=== PATIENT | female | born 1970 | race Caucasian/White ===

== ENCOUNTER 2017-04-02 02:30 | Inpatient (IN) | payer MEDICAID ==
[~2017-04-02] VITALS: Ht 177.8 cm; Wt 112.7 kg
--- NOTE | ~2017-04-02 | HP ---
PATIENT'S NAME: KRAIG ECHOLS [facility] AGE: 46 Y [address] ROOM: [place] [address] LOCATION: GICU ADMIT DATE: 04/02/2017 History & Physical DISCHARGE DATE: 04/07/2017 FAMILY PHYSICIAN: Physician, Unknown ATTENDING PHYSICIAN: Collin Murcia DATE OF SERVICE: CHIEF COMPLAINT: Chest and back pain and headache. HISTORY: Mrs. Echols is a 46-year-old, white female, who presented to the [facility] Room, complaining of the above. She states she has been on the side of the road for 2 hours trying to fix her car while traveling from [place] back home to [place], [place]. She got hot and overwork and began experiencing some right shoulder pain, right neck pain with extension to the back and possibly into the chest. She was taken to the CAT scan and found to have an aortic dissection, and I was called for acceptance and transfer. What we found out during the transfer is that she has had previous sternotomy for repair of a type A dissection. My review of the CT scan indicates to me that this is likely a chronic dissection and no acute episode has been noted. She presented here, mainly complaining of a headache. We [facility] department. CAT scan of the head was performed which showed questionable cerebellar mass. She was on an esmolol drip. This was adjusted and she was transferred to the intensive care unit. Her medical records were obtained from [place], [place]. PAST MEDICAL HISTORY: Significant for the aortic dissection, poorly controlled hypertension, and anxiety. SOCIAL HISTORY: She is a chronic smoker. Continues to smoke at least half a pack a day. FAMILY HISTORY: Not significant for coronary artery disease. MEDICATIONS: She is currently on an esmolol drip. At home, she is on atorvastatin 20 mg p.o. q.h.s., Lopressor 100 mg p.o. b.i.d., Norvasc 10 mg daily. REVIEW OF SYSTEMS: As per the history of chief complaint. PATIENT'S NAME: KRAIG ECHOLS [facility] AGE: 46 Y [address] ROOM: [place] [address] LOCATION: GICU ADMIT DATE: 04/02/2017 History & Physical DISCHARGE DATE: 04/07/2017 FAMILY PHYSICIAN: Physician, Unknown ATTENDING PHYSICIAN: Collin Murcia PHYSICAL EXAMINATION: GENERAL: An alert and oriented white female, with a complaint of a headache, but otherwise in no acute distress. HEENT: Shows head to be normocephalic and atraumatic. Extraocular muscles are intact. Pupils are equal, round, react to light and accommodation. HEART: Regular rate and rhythm without murmur or gallop. She has a sternotomy incision which is well healed and her sternum is well healed. LUNGS: Clear to auscultation bilaterally. ABDOMEN: Soft, obese, nontender. Bowel sounds are positive. EXTREMITIES: Showed no evidence of cyanosis, clubbing, or edema. She has equal pulses bilaterally into the legs bilaterally and equal as well. DIAGNOSTIC DATA: CAT scan does show chronic dissection of the arch and not involving the head vessels and goes into the descending thoracic aorta into the abdominal aorta. Review of her records from [place] indicates this is unchanged from previous films. IMPRESSION: 1. Hypertensive crisis with systolics greater than 200 and diastolics greater than 100 on arrival to [facility]. 2. History of aortic dissection with chronicity of distal arch, descending, and abdominal aorta. 3. Headache. Questionable posterior cerebral mass on CAT scan. PLAN: She will be admitted to the intensive care unit for aggressive blood pressure management. We will trend cardiac enzymes. We will obtain an MRI in the a.m. DO ANDRA HILL/naresh /[id number] D: [id number] T: [id number] HISTORY & PHYSICAL
--- NOTE | ~2017-04-02 | DS ---
PATIENT'S NAME: KRAIG UREÑA [facility] AGE: 46 Y [address] ROOM: [id number] [place], [place] [address] LOCATION: GICU ADMIT DATE: 04/02/2017 Discharge Summary DISCHARGE DATE: 04/07/2017 FAMILY PHYSICIAN: Physician, Unknown ATTENDING PHYSICIAN: Yandel Pete HOSPITAL COURSE: The patient is a 46-year-old white female who was traveling through the [facility]. She had a car breakdown in [place]. She became overheated and started developing chest pain and a headache. She was evaluated in the [place] [facility]. She was transferred here from [place] due to concerns of an aortic dissection. As it turns out, the patient had a previous history of a repair of a type A dissection. Her CT scan was reviewed as were her medical records from the dissection, and it was deemed that the patient had a stable chronic dissection upon her arrival. We did do a CT of the head, however, because the patient did have continued complaints for concern, and there was a cerebellar mass. The CT of the head was done secondary to the headache complaints. In addition, the patient did arrive in a hypertensive crisis and required an esmolol drip to bring her pressures down. Oral antihypertensives were also added. We did proceed with an MRI given the mass in the head to further delineate it, and this did show a small vascular malformation in the left cerebellar hemisphere. It was felt to be stable as well. The patient did have a lot of pain complaints during her hospitalization. She did request quite a bit of narcotic pain medicine. We did adjunct the pain medications where possible with nonnarcotic medications. We did have to re-CT the chest during the hospitalization as the patient did complain of severe chest pain/back pain during the hospital stay. There was no evidence of any type of further dissection again. There was no change in her cardiac enzymes. Once the patient's hypertensive situation was controlled, we worked with Care Management to get the patient back to [place] so that she could get back home. We did discuss with her that she would need to follow with the primary care doctor and would need a followup at some point with a neurosurgeon. We did make discs of all of her scans for her to take with her so that she would not have to repeat any type of workup. On March 27, 2017, the patient was found stable for discharge. DISCHARGE ORDERS: Include a diet with no restrictions. Activities with no restrictions. She is to follow up with her shift superintendent in 1 to 2 weeks, and she is to bring her CD images with her for the followup. She will then need to be seen by a neurosurgeon in consultation. The patient will go home without any home health care services or skilled care. FINAL DIAGNOSES: Include: PATIENT'S NAME: KRAIG UREÑA [facility] AGE: 46 Y [address] [id number] [address] LOCATION: [facility] ADMIT DATE: 04/02/2017 Discharge Summary DISCHARGE DATE: 04/07/2017 FAMILY PHYSICIAN: Physician, Unknown ATTENDING PHYSICIAN: Yandel Pete 1. Stable aortic dissection/hypertensive crisis. 2. Anxiety. 3. Headache. 4. 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 DISCHARGE MEDICATIONS: Include: 1. Norvasc 10 mg daily. 2. Lipitor 20 mg daily. 3. Lopressor 100 mg twice a day. 4. Lexapro 10 mg daily. 5. HydroDIURIL 25 mg q.a.m. 6. Lisinopril 5 mg twice a day. 7. Lorazepam 2 mg t.i.d. 8. [place] 5/325 one p.o. q.4 hours p.r.n. The patient verbalizes understanding of the discharge orders. The patient is discharged to home in stable condition. HARRIET LIVINGSTON APRN FOR YANDEL PETE, DLQ/modl /[id number] d: 04/24/17 1331 t: 04/25/17 1351, DISCHARGE SUMMARY
--- NOTE | 2017-04-02 04:24 | NUR ---
Significant Event: Admitted at 0400. Neuro intact. Esmolol gtt at 50 mcg/kg/min. RA. Lungs clear. Active bowel sounds. C/o headache. Denies chest pain. Follow up: CT head this am
[2017-04-02] MEDS ORDERED: NORVASC10 MG PO (04:40)
[2017-04-02] MEDS ORDERED: LIPITOR20 M1 PO (04:41)
[2017-04-02] MEDS ORDERED: LOPRESSOR100 MG PO (04:42)
[2017-04-02 04:59] LABS: CPK 168 IU/L (21-215)
[2017-04-02 13:01] LABS: BASOPHIL # 0.1 K/uL (0.0-0.2); BASOPHIL % 0.6 %; EOSINOPHIL # 0.2 K/uL (0.0-0.5); EOSINOPHIL % 2.5 %; HEMOGLOBIN 13.4 g/dL (10.0-15.0); IMMATURE GRANULOCYTE % 0.5 %; LYMPHOCYTE % 34.5 %; MCHC 32.7 gm/dL (32.0-36.5); MCV 94.9 fl (83.0-98.0); MONOCYTE # 0.7 K/uL (0.0-1.0); MONOCYTE % 7.9 %; MPV 9.1 fl (9.4-12.4); NEUTROPHIL # (ANC) 4.7 K/uL (1.8-7.8); NRBC % 0 /100WBC (0-0.00); PLATELET COUNT 319 K/uL (150-450); RBC 4.32 M/uL (3.50-5.50); RDW-CV 14.5 % (11.9-14.6); WBC 8.6 K/uL (4.0-11.0)
[2017-04-02 13:18] LABS: CPK 164 IU/L (21-215)
[2017-04-02 13:31] LABS: ALBUMIN 3.2 gm/dL (3.5-5.0); ANION GAP 11.5 (10.0-19.0); CALCIUM 8.6 mg/dL (8.5-10.5); POTASSIUM 4.5 mMol/L (3.7-5.1); TOTAL BILIRUBIN 0.4 mg/dL (0.0-1.5); TOTAL PROTEIN 7.1 g/dL (6.0-8.4)
--- NOTE | 2017-04-02 17:41 | NUR ---
Significant Event: Patient A/O, denies numbness or tingling. LS clear, sats >90% on RA. SBP's between 90s-150s, Esmolol gtt titrated, see flow sheet. C/O headache, PRN morphine et [place] given. No edema, VSS. SBA to bedside commode. Cardiac diet, eats 100%. Patient tearful t/o day, PRN Ativan given. Follow up: Monitor SBP's, wean off Esmolol
[2017-04-02 20:32] LABS: CPK 143 IU/L (21-215)
--- NOTE | 2017-04-03 04:43 | NUR ---
Significant Event: Neuro intact. Esmolol running at 50 mcg/kg/min. RA. Lungs clear. Good appetite. Up to bedside commode, SBA x3 to void. 1300 ml urine out. No BM. C/o HUTCHINS. [place] 2 tabs given x2. Morphine 4mg given x3. Ativen given x2. Follow up: Wean esmolol
[2017-04-03 05:16] LABS: CPK 123 IU/L (21-215)
--- NOTE | 2017-04-03 12:54 | NUR ---
Introduced self and role of care management to patient. She is from [facility]. She states that she was on her way back home from being in [place] for her youngest daughters graduation. She states that she is able to do all her own ADL's. She does have a daughter that lives in [place]. She is very tearing during our conversation. She states that she used most of her money to get home on fixing the radiator in [place]. She got as far as [place] and had to change the water pump. She states that she does not know how she will get back to [facility]. She does not know anyone in this area. I did ask if she had any family that maybe could assist her. She stated that 2 of her daughters live in [place] and she has one in [place] "but they don't have anymore money than me." I did encourage her to contact the [facility] of [place] to see if her porter sample case had any emergency funds to assist her in getting home. I explained that we need to get her medically stable first and then we would work out the rest. She did state that she had a friend in [place] if she could make it that far. She denies any other needs at this time. Will continue to follow.
--- NOTE | 2017-04-03 19:10 | NUR ---
Significant Event: PT A&O x3. VSS, on room air. PT c/o headache-excedrin ordered, states helps some. [place] 2 tabs given last at 1130. Morphine 4mg given last at 1745. Ativan given x2 last at 1745. PT ambulates with SBA. Voiding without difficulties. Tolerating cardiac diet. PT c/o heartburn, [place] ordered. Orders to restart esmolol if extra lisinopril dose doesn't bring SBP below 130. Follow up:
--- NOTE | 2017-04-04 05:58 | NUR ---
Significant Event: Follow up: PATIENT A/O X3 MOVES ALL EXTREMITIES, AMBULATES IN ROOM, GAVE SEVERAL PAIN MEDICATIONS AND ONE DOSE OF ADIVAN, PRESSURES NORMALIZED AFTER PAIN WAS CONTOL AFTER PAIN WAS CONTROLED
[2017-04-04 09:59] LABS: ANION GAP 11.1 (10.0-19.0); CALCIUM 8.5 mg/dL (8.5-10.5); PHOSPHORUS 3.1 mg/dL (2.5-4.9); POTASSIUM 4.1 mMol/L (3.7-5.1)
[2017-04-04 10:03] LABS: CPK 135 IU/L (21-215)
--- NOTE | 2017-04-04 16:33 | NUR ---
Significant Event: PT A&O x3. VSS, pt restarted on esmolol gtt to keep SBP less than 120. PT c/o back at a 07/04, Luma Johnston notified cardiac enzymes ordered x3, CT done, no changes. Pain relieved with morphine, norco and restarting esmolol. PT ambulates with SBA. Tolerating cardiac diet. Voiding without difficulties. Miralax given this afternoon for c/o constipation. PT anxious and teary at times, ativan given Follow up:
[2017-04-04 16:58] LABS: CPK 131 IU/L (21-215)
[2017-04-05 00:54] LABS: CPK 130 IU/L (21-215)
--- NOTE | 2017-04-05 05:05 | NUR ---
Significant Event: PATIENT a/o, C/O HEADACHE, DENIES BACK PAIN. PRM MORPHONE GIVEN X2. TEARFUL DURING HS, LEARNED OF A IN FAMILY. PATIENT REPEATEDLY STATES THAT SHE "NEEDS A CIGARETTE". OFFERED CHEWING GUM, GAVE AROMATHERAPY, ETC HOWEVER A STRONG CIGARETTE SMOKE SMELL CAME FROM PATIENTS ROOM. WHEN ASKED IF SHE WAS SMOKING, PATIENT REPLIED "I JUST TOOK ONE DRAG AND I BLEW IT INTO MY BLANKET, IM SORRY" SECURITY NOTIFIED, SPOKE WITH PATIENT AND ASKED PATIENT TO VOLUNTARILY SURRENDER HER TOBACCO PRODUCTS UNTIL TIME OF DISCHARGE, PATIENT COMPLIED. PATIENT REMAINS ON ESMOLOL GTT, PLEASE SEE FLOW SHEET FOR DETAILS. Follow up:WEAN OFF ESMOLOL GTT.
--- NOTE | 2017-04-05 14:57 | NUR ---
Significant Event: Esmolol gtt turned off at 0850. SBPs remain below 120s. VSS on room air. Prn morphine given for headaches. Afebrile. Up to bedside commode. No BM. A&Ox3. PCU status. Follow up: Continue to monitor blood pressures.
--- NOTE | 2017-04-05 15:14 | NUR ---
Social visit with patient today. I inquired if she had contacted anyone at the [facility] of [facility] to see if they had any services that could assist her in getting home. She stated "well no they are 3 hours ahead of you here". I did explain that we could maybe find her a ride back to [place] but then it would be lup to her to get back to [place]. I also told her I could find her some sweat pants to wear. She has a bag in the room with shoes and shirt. She verbalized understanding. I did call the [facility] in [place]. I spoke with Ashlie. She states that since patient does not have any dependent children with her and is only 46 they really have no programs to assist her in returning to [place]. Will continue to follow.
--- NOTE | 2017-04-06 04:57 | NUR ---
Significant Event:PATIENT IS A/O, C/O HEADACHE RATED 4-5 ON A 0-10 SCALE, PRN MORPHINE GIVEN X1, NORCO GIVEN X1. LS CLEAR, BS X4. VITAL SIGNS WNL. ESMOLOL GTT REMAINS OFF THIS SHIFT. EDUCATED PATIENT ON HYPERTENSIVE MEDS ET THE NEED FOR HER TO REFRAIN FROM ACTIVITIES THAT MAY CAUSE STRESS AND OR HER BP TO RISE, STATES UNDERSTANDING. PATIENT ADMITS TO THIS NURSE THAT SHE "TOOK A DRAG OFF A CIGARETTE" IN HER ROOM THIS EVENING. STATES SHE HAD ANOTHER PACK OF CIGARETTES IN HER PURSE THAT SHE DID NOT SURRENDER THE NOC BEFORE. SAID SHE BLEW THE SMOKE INTO THE TOILET AND USED AIR FRESHENERS. EDUCATED HER ON THE HOSPITAL NO SMOKING POLICY AND THE DANGERS OF SMOKING IN THE VICINITY OF O2. CHARGE NURSE NOTIFIED. Follow up: DISCHARGE HOME
--- NOTE | 2017-04-06 12:56 | NUR ---
Spoke with Luma Johnston APRN today. She states patient is ready for discharge as soon as we can find a ride for her to [place]. I called and made transportation arrangements with [facility] ([phone]) for transportation at 11 am 04/07. I updated Luma Johnston and Negar MAHONEY.
--- NOTE | 2017-04-06 13:51 | NUR ---
Significant Event:PT IS AAOX3. MAEW. CESPEDES. NO C/O NUMBNESS, TINGLING, DOUBLE OR BLURRED VISION. DID HAVE SOME CHEST DISCOMFORT THIS MORNING. MORPHINE GIVEN WITH RELIEF NOTED. NORCO FOR HUTCHINS GIVEN. ACTIVE BS. IV R) WRIST SL'D. UP AD MARY ANN IN ROOM. WILL HAVE RIDE TOMORROW AROUND 1100. Follow up:
--- NOTE | 2017-04-06 14:29 | NUR ---
Updated patient of plans for discharge tomorrow and arrangements for transportationhas been made for 11 am. She verbalized understanding.
--- NOTE | 2017-04-07 00:26 | NUR ---
Significant Event: Patient transferred to room 6322 at 0015 via bed with nurse and GL ACCOUNTANT. Verbal report gievn to DENZEL Reyes at bedside. Belongings with patient. Follow up: continue
--- NOTE | 2017-04-07 04:10 | NUR ---
Significant Event: Neurologically intact. VSS. RA. No BM. Up to bathroom to void x4 independently. C/O HUTCHINS. [place] 2 tabs given x2. Morphine 2 mg given x1. Follow up: D/C today
[2017-04-07] MEDS ORDERED: LEXAPRO10 MG PO (10:30)
[2017-04-07] MEDS ORDERED: HYDRODIURIL25 MG PO (10:32)
[2017-04-07] MEDS ORDERED: PRINIVIL (ZESTRI5 MG PO (10:33)
[2017-04-07] MEDS ORDERED: ATIVAN2 MG PO (10:34)
[2017-04-07] MEDS ORDERED: HYDROCODON-ACE1 EAC4 PO (10:39)
--- NOTE | 2017-04-07 11:19 | NUR ---
PATIENT WALKED TO THE WAITING ROOM ON DISMISSAL. [facility] PICKED HER UP TO TAKE HER TO HER CAR.
== END 2017-04-07 11:10 | disposition hospice, home (50) | DRG 305 ==
LOC: GMED 02:30 → GICU 03:06
PROVIDERS: Nurse Practitioner Women's Health; ADMIT Thoracic Surgery (Cardiothoracic Vascular Surgery)
DX: I16.9 Hypertensive crisis, unspecified (principal); F17.210 Nicotine dependence, cigarettes, uncomplicated; R51 Headache; Z86.79 Personal history of other diseases of the circulatory system
CPT/HCPCS: A9270; A9577; J1940; J2270; J7030